=== PATIENT | male | born 1970 | race American Indian/Alaskan Native ===

== ENCOUNTER 2019-11-04 22:37 | Emergency (ER) | payer SELFPAY ==
[2019-11-04 22:46] VITALS: BP 114/75
--- NOTE | 2019-11-05 00:11 | XRay Report ---
Lumbosacral spine, 3 views INDICATION: Back pain x1 day FINDINGS: The vertebral body heights and disc spaces are preserved. No fracture or spondylolisthesis. No spurring or arthritis. No bony abnormality identified. Impression: Negative lumbar spine radiograph. Signer Name: Jone Rowland MD Signed: 11/05/2019 12:07 AM Workstation Name: [id number]
--- NOTE | 2019-11-05 02:48 | Emergency Department Report ---
ED Back Pain/Injury HPI - General Chief Complaint: Back Pain/Injury Stated Complaint: LOWER BACK PAIN Time Seen by Provider: 11/05/19 02:21 Source: patient Limitations: No Limitations - History of Present Illness Initial Comments: Patient is a 49-year-old male presents emergency room with complaints of left lower back pain that began this morning. 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 He denies any fall or injury, numbness, weakness, bowel or bladder incontinence, urinary symptoms, fever. He denies any past medical history or allergies medications. He states that he is a smoker, drinker. Denies drug use. - Related Data Previous Rx's Medication Instructions Recorded Last Taken Type Cyclobenzaprine [Flexeril] 10 mg PO QHS PRN #10 tablet 11/05/19 Unknown Rx Naproxen [EC-Naproxen] 500 mg PO BID PRN #14 tablet. 11/05/19 Unknown Rx Allergies Allergy/AdvReac Type Severity Reaction Status Date / Time No Known Allergies Allergy Unverified 11/04/19 23:29 ED Review of Systems ROS: Stated complaint: LOWER BACK PAIN Other details as noted in HPI Comment: All other systems reviewed and negative ED Past Medical Hx - Past Medical History Previous Medical History?: No - Surgical History Past Surgical History?: No - Social History Smoking Status: Current Every Day Smoker Substance Use Type: None - Medications Home Medications: Home Medications Medication Instructions Recorded Confirmed Last Taken Type Cyclobenzaprine [Flexeril] 10 mg PO QHS PRN #10 tablet 11/05/19 Unknown Rx Naproxen [EC-Naproxen] 500 mg PO BID PRN #14 tablet. 11/05/19 Unknown Rx ED Physical Exam - General Limitations: No Limitations General appearance: alert, in no apparent distress - Head Head exam: Present: atraumatic, normocephalic - Eye Eye exam: Present: normal appearance - ENT ENT exam: Present: mucous membranes moist - Neck Neck exam: Present: normal inspection, full ROM. Absent: tenderness - Respiratory Respiratory exam: Present: normal lung sounds bilaterally. Absent: respiratory distress, wheezes, rales, rhonchi, stridor, chest wall tenderness, accessory muscle use, decreased breath sounds, prolonged expiratory - Cardiovascular Cardiovascular Exam: Present: regular rate, normal rhythm, normal heart sounds. Absent: systolic murmur, diastolic murmur, rubs, gallop - Back Exam Back exam: Present: normal inspection, full ROM, paraspinal tenderness (left lumbar paraspinal muscular TTP, no mildine C-spine, T-spine, or L-spine tenderness, no step offs, no deformities). Absent: vertebral tenderness - Neurological Exam Neurological exam: Present: alert, oriented X3, CN II-XII intact, normal gait, other (5/5 strength in the BUE/BLE, sensation intact throughout, no focal neuro deficit). Absent: motor sensory deficit - Psychiatric Psychiatric exam: Present: normal affect, normal mood - Skin Skin exam: Present: warm, dry, intact ED Course Vital Signs 11/04/19 11/05/19 22:44 03:08 Temperature 98.4 F Pulse Rate 69 71 Respiratory 20 16 Rate Blood Pressure 114/75 O2 Sat by Pulse 99 99 Oximetry ED Medical Decision Making - Radiology Data Radiology results: report reviewed Lumbosacral spine, 3 views INDICATION: Back pain x1 day FINDINGS: The vertebral body heights and disc spaces are preserved. No fracture or spondylolisthesis. No spurring or arthritis. No bony abnormality identified. Impression: Negative lumbar spine radiograph. Signer Name: Jone Rowland MD Signed: 11/05/2019 12:07 AM Workstation Name: [id number] Transcribed By: JAQUELINE Dictated By: Jone Rowland MD Electronically Authenticated By: Jone Rowland MD Signed Date/Time: 11/05/196 DD/ TD/TT: - Medical Decision Making Patient is a 49-year-old male presents emergency room with complaints of left lower back pain that began this morning. 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 He denies any fall or injury, numbness, weakness, bowel or bladder incontinence, urinary symptoms, fever. He denies any past medical history or allergies medications. He states that he is a smoker, drinker. Denies drug use. vitals are normal. on exam: left lumbar paraspinal muscular TTP, no mildine C-spine, T-spine, or L-spine tenderness, no step offs, no deformities, no neuro deficits. XR L-spine ordered prior to my examination and shows Negative lumbar spine radiograph. Bones and examination consistent with low back strain. Patient given Toradol and Flexeril while in the emergency department as he did not drive and his symptoms improved. Patient sent home with prescription for naproxen and Flexeril. advised pt please take medication as prescribed as needed. Do not drive or operate machinery while taking muscle relaxer. Use ice pack, heating pad, rest, epsom salt bath. Follow-up with a primary care doctor in the next 2-3 days. Return to the emergency room for any new or worsening symptoms. - Differential Diagnosis muscle strain, sprain, fx, dislocation, DDD, arthritis, disc herniation Critical care attestation.: If time is entered above; I have spent that time in minutes in the direct care of this critically ill patient, excluding procedure time. ED Disposition Clinical Impression: Low back strain Qualifiers: Encounter type: initial encounter Qualified Code(s): S39.012A - Strain of muscle, fascia and tendon of lower back, initial encounter Disposition: TO HOME OR SELFCARE Is pt being admited?: No Does the pt Need Aspirin: No Condition: Stable Instructions: Muscle Strain (ED) Additional Instructions: please take medication as prescribed as needed. Do not drive or operate machinery while taking muscle relaxer. Use ice pack, heating pad, rest, epsom salt bath. Follow-up with a primary care doctor in the next 2-3 days. Return to the emergency room for any new or worsening symptoms. Prescriptions: Cyclobenzaprine [Flexeril] 10 mg PO QHS PRN #10 tablet PRN Reason: Muscle Spasm Naproxen [EC-Naproxen] 500 mg PO BID PRN #14 tablet. PRN Reason: pain Referrals: ALEXA GEORGES MD [Staff Physician] - 2-3 Days [facility] [Outside] - 2-3 Days Forms: Work/School Release Form(ED) Time of Disposition: 02:46 Print Language: HEBREW
[2019-11-05] MEDS ORDERED: KETOROLAC 60 MG/2 ML INJ IM ONE (02:49)
[2019-11-05] MEDS ORDERED: CYCLOBENZAPRINE 10 MG TAB PO ONE (02:49)
== END 2019-11-05 03:08 | disposition home or self-care (01) ==
LOC: ED 22:37
DX: S39.012A Strain of muscle, fascia and tendon of lower back, initial encounter (principal); F17.200 Nicotine dependence, unspecified, uncomplicated; X58.XXXA Exposure to other specified factors, initial encounter; Y93.89 Activity, other specified; Y92.89 Other specified places as the place of occurrence of the external cause; Y99.8 Other external cause status
CPT/HCPCS: 72100